=== PATIENT | female | born 2000 | race Caucasian/White ===

== ENCOUNTER 2021-04-06 22:21 | Emergency (ER) | payer OTHER, SELFPAY ==
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
[2021-04-06 22:26] VITALS: BP 105/68; PULSE 91; RESP 16; TEMP 37.1; O2SAT 99
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
[2021-04-06 23:07] VITALS: BP 107/67; PULSE 69; RESP 17; O2SAT 99
[2021-04-06] MEDS: Acetaminophen 325 MG TABLET 650 MG PO (23:08)
== END 2021-04-07 00:34 | disposition home or self-care (01) ==
PROVIDERS: Emergency Provider Emergency Medicine; PCP Pediatrics
DX: S09.90XA Unspecified injury of head, initial encounter (principal); G44.309 Post-traumatic headache, unspecified, not intractable; M54.6 Pain in thoracic spine; V43.52XA Car driver injured in collision with other type car in traffic accident, initial encounter; Y93.9 Activity, unspecified; Y92.410 Unspecified street and highway as the place of occurrence of the external cause; Y99.9 Unspecified external cause status; Z79.899 Other long term (current) drug therapy
CPT/HCPCS: 70450; 71045; 72070; 99284